=== PATIENT | male | born 1960 | race African-American/Black ===

== ENCOUNTER → 2019-09-27 08:47 | Outpatient (CLI) | payer OTHER, SELFPAY ==
--- NOTE | ~2019-09-27 | XR_ITS ---
XR chest 2V DATE: 09/27/2019 09:23 INDICATION: History of malignant neoplasm of kidney TECHNIQUE: 2 views COMPARISON: 03/08/2018 PA and lateral chest FINDINGS: There are calcified right hilar nodes, consistent with old pulmonary granulomatous disease. No hilar or mediastinal enlargement. Normal heart size. No pulmonary vascular congestion or pleural effusion. Bilateral hyperinflation. No pulmonary infiltrate or consolidation. Diffuse idiopathic skeletal hyperostosis of the thoracic spine. IMPRESSION: Bilateral hyperinflation; no active cardiopulmonary disease Reviewed, dictated and finalized at location A.
--- NOTE | ~2019-09-27 | CT_ITS ---
EXAMINATION: CT abdomen pelvis wo/w con EXAM DATE: 09/27/2019 09:22 INDICATION: Partial left-sided nephrectomy for renal cancer. Hypertension. TECHNIQUE: Spiral CT of the abdomen without contrast followed by both abdomen and pelvis with 100 cc intravenous Omnipaque 350. Axial, coronal and sagittal images were reviewed. The dose-length produc t (DLP) for this examination was 1126.20 mGy-cm. The exposure was tailored according to patient size (auto mA exposure control), and iterative reconstruction (ASIR) was used as additional dose reductio n technique. Comparison is made to prior examination from 03/08/2018. FINDINGS: The liver, spleen, adrenal glands and pancreas are unremarkable. Gallbladder is unremarkab le. No biliary obstruction. Portal and splenic veins are patent. Kidneys enhance symmetrically. T here is no hydronephrosis. Stable surgical changes from partial left nephrectomy, lower pole resected . There is mild prostatomegaly. The bladder is unremarkable. There is no retroperitoneal or pelvic lymphadenopathy. There is mild scattered arteriosclerotic disease. The appendix is normal. The stomach and small bowel are unremarkable. There is expected amount of c olonic stool. No free intraperitoneal gas. The heart is normal in size. There are no pericardial or pleural effusions. The lung bases are unremarkable. There are no osteoblastic or osteolytic les ions identified. IMPRESSION: 1. Stable partial left nephrectomy. No evidence of metastatic disease. 2. Mild prostatomegaly. Reviewed, dictated and finalized at location A.
[2019-09-27 09:10] LABS: Estimated Glomerular Filt Rate > 60
== END ==
PROVIDERS: Visit Provider Urology
DX: Z85.528 Personal history of other malignant neoplasm of kidney (principal); N40.0 Benign prostatic hyperplasia without lower urinary tract symptoms; R91.8 Other nonspecific abnormal finding of lung field
CPT/HCPCS: 36415; 71046; 74178; Q9967

== ENCOUNTER 2020-06-11 08:54 | Outpatient (CLI) | payer OTHER, SELFPAY ==
--- NOTE | ~2020-06-11 | US_ITS ---
US abdomen limited INDICATION: Left renal cancer. Increased liver function tests. PROCEDURE: Realtime right upper abdominal ultrasound. COMPARISON: No prior studies for comparison. FINDINGS: The pancreas is normal without focal mass or pancreatic ductal dilation. Liver echotexture is normal without focal mass or intrahepatic biliary dilatation. There is normal directional flow i n the portal vein. The gallbladder is normal without stones, gallbladder wall thickening or pericholecystic fluid. Comm on bile duct measures 4 mm. No sonographic Copeland's sign. IMPRESSION: 1: Normal limited abdominal ultrasound. Reviewed, dictated and finalized at location B.
== END 2020-06-11 08:55 | disposition home or self-care (01) ==
PROVIDERS: PCP Internal Medicine; Visit Provider Nurse Practitioner
DX: R74.8 Abnormal levels of other serum enzymes (principal)
CPT/HCPCS: 76705

== ENCOUNTER 2020-12-17 00:59 | Day surgery (SDC) | payer OTHER, SELFPAY ==
[2020-12-02 16:02] VITALS: BMI 25.7
[2020-12-17 08:20] VITALS: BP 149/79; PULSE 79; RESP 18; TEMP 36.6; O2SAT 100; BMI 26.4
--- NOTE | 2020-12-17 08:24 | WPDANESEPPF ---
Anes - Initial Pre Proc Eval Procedure: Operation Date: 12/17/20 09:15 Proposed Procedures p Esophagogastroduodenoscopy - Louis Garzon MD Date/Time: 12/17/20 08:24 Surgeon: Louis Garzon MD Pre Op Diagnosis: esophagitis, GERD Patient Data Age: 60 Gender: M Height: 1.88 m Weight: 93.2 kg Last Vital Signs Temp 36.6 C 12/17/20 08:20 Pulse 79 12/17/20 08:20 Resp 18 12/17/20 08:20 Pulse Ox 100 12/17/20 08:20 Allergies Allergy/AdvReac Type Severity Reaction Status Date / Time No Known Allergies Allergy Verified 12/17/20 08:18 Home Medications Medication Instructions Recorded Confirmed Type aspirin 81 mg tablet,delayed 81 mg PO DAILY 01/17/19 12/02/20 History release sildenafil 50 mg tablet 50 mg PO DAILY PRN #7 tablet 05/30/20 12/02/20 Rx linaclotide 145 mcg capsule 145 mcg PO DAILY #60 cap 11/27/20 12/02/20 Rx metformin 500 mg tablet 500 mg PO DAILY #90 tablet 11/27/20 12/02/20 Rx metoprolol succinate 50 mg 100 mg PO DAILY #90 tablet 11/27/20 12/02/20 Rx tablet,extended release 24 hr olmesartan 20 1 tablet PO DAILY #90 tablet 11/27/20 12/02/20 Rx mg-hydrochlorothiazide 12.5 mg tablet omega-3 fatty acids 1,000 mg 1,000 mg PO DAILY 11/27/20 12/02/20 History capsule pantoprazole 40 mg tablet,delayed 40 mg PO BID #90 tablet 11/27/20 12/02/20 Rx release pravastatin 80 mg tablet See Rx Instructions .ROUTE 11/27/20 12/02/20 Rx .COMPLEX #90 tablet trazodone 100 mg tablet 100 mg PO QHS PRN #30 tablet 11/27/20 12/02/20 Rx Patient hx anesthesia problems: none Family hx anesthesia problems: none Results Review: All pre-operative results and documents have been reviewed as part of the pre-operative evaluation. 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 Low hemoglobin and low hematocrit Overweight (11/25/16) Type 2 diabetes mellitus with hyperglycemia Weight loss Family History Family History Mother Hypertension Sibling Patient's sister is in good health Patient's brother is in good health Social History Social History Years smoked: 30 Smoking status: Current every day smoker Tobacco type: cigarettes Second hand tobacco smoke exposure: No Alcohol intake: current Drinks per week: 4 Substance use: never Living arrangements: with family Spiritual care concerns: No Anes - Eval Final PreProcedure Day of Procedure 12/17/20 08:24 Patient weight: overweight Heart: regular rate and rhythm Lungs: clear to auscultation and normal air movement Airway: Mallampati scale class II Neurological: alert and oriented Last oral intake: >/= 8 hours ASA classification: III Emergent: no Anesthetic plan: proceed Anesthesia type and monitoring: general GIVS Results Review: All pre-operative results and documents have been reviewed as part of the pre-operative evaluation. Informed Consent: The patient's anesthetic plan and its attendant risks and benefits were discussed with the patient/family/POA. Questions were solicited and answers provided to the satisfaction of the patient/family/POA.
[2020-12-17] MEDS: LACTATED RINGERS 1,000 ML 150 ML IV CONT (08:40)
[2020-12-17 08:42] LABS: Glucose Point of Care 205 mg/dl (65-105)
--- NOTE | 2020-12-17 09:05 | WPDGICN ---
Assessment and Plan Assessment and plan (1) Epigastric abdominal pain: Code(s): R10.13 - Epigastric pain Status: Acute Assessment and Plan: Patient with epigastric pain. Appears to be consistent with poorly controlled acid reflux. However patient is listed as taking pantoprazole 40mg p.o. b.i.d.. Plan is for EGD to assess this finding. Patient has a prior history of erosive esophagitis. (2) GERD (gastroesophageal reflux disease): Code(s): K21.9 - Gastro-esophageal reflux disease without esophagitis Status: Acute Assessment and Plan: Patient has a longstanding history of GE reflux disease for which she should continue anti-reflux measures on long-term PPI use. (3) History of colon polyps: Code(s): Z86.010 - Personal history of colonic polyps Status: Acute Assessment and Plan: Patient has a history of colon polyps most recently 2017. Follow-up colonoscopy suggested 2022. (4) Hx of renal cell cancer: Code(s): Z85.528 - Personal history of other malignant neoplasm of kidney Status: Acute (5) Type 2 diabetes mellitus with hyperglycemia: Code(s): E11.65 - Type 2 diabetes mellitus with hyperglycemia Status: Acute GI Consult Note Consult date/time: 12/17/20 09:05 HPI: Moses Mayen is a 60 year old male presents for EGD. Patient reports that he was hospitalized at [facility] in [place] several months ago. These records are not available. He was told that he had an infection and was sent home. Apparently had endoscopies at that time. Over the last 2-3 weeks he has noticed epigastric and substernal burning pain. This is in [facility] did only with taking Tums. He has had no improvement with liquid antacids. He has not tried Prilosec or similar medications. He denies any bleeding. He states diet does aggravate his discomfort. For these reasons he is referred for endoscopy. Primary care notes are reviewed in suggestive of acid reflux disease. Medications listed include pantoprazole which patient does not admit being aware of taking at this time. Old records reflect a history of renal cell carcinoma. Diabetes mellitus. Hypertension. Old records reviewed include he normal EGD in 2018 and a history of colon polyps by colonoscopy in 2018. 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 Low hemoglobin and low hematocrit Overweight (11/25/16) Type 2 diabetes mellitus with hyperglycemia Weight loss Family History Family History Mother Hypertension Sibling Patient's sister is in good health Patient's brother is in good health Social History Social History Years smoked: 30 Smoking status: Current every day smoker Tobacco type: cigarettes Second hand tobacco smoke exposure: No Alcohol intake: current Drinks per week: 4 Substance use: never Living arrangements: with family Spiritual care concerns: No Meds Home Medications and Allergies Home Medications Medication Instructions Recorded Confirmed Type aspirin 81 mg tablet,delayed 81 mg PO DAILY 01/17/19 12/02/20 History release sildenafil 50 mg tablet 50 mg PO DAILY PRN #7 tablet 05/30/20 12/02/20 Rx linaclotide 145 mcg capsule 145 mcg PO DAILY #60 cap 11/27/20 12/02/20 Rx metformin 500 mg tablet 500 mg PO DAILY #90 tablet 11/27/20 12/02/20 Rx metoprolol succinate 50 mg 100 mg PO DAILY #90 tablet
[2020-12-17] MEDS: BENZOCAINE (*SP) 60 ML SPRAY CAN (HURRICAINE) 1 SPRAY MUCOUS MEM (09:19)
[2020-12-17 09:30] VITALS: BP 107/69; PULSE 107; RESP 29; O2SAT 100
[2020-12-17 09:40] VITALS: BP 118/66; PULSE 98; RESP 25; O2SAT 100
[2020-12-17 09:50] VITALS: BP 156/88; PULSE 71; RESP 17; O2SAT 100
== END 2020-12-17 09:57 | disposition home or self-care (01) ==
PROVIDERS: PCP Internal Medicine; Visit Provider Internal Medicine Gastroenterology
PROC: 0DJ08ZZ Inspection of Upper Intestinal Tract, Via Natural or Artificial Opening Endoscopic (ICD-10-PCS; CPT 43235; principal; 2020-12-17 09:15)
DX: Z12.11 Encounter for screening for malignant neoplasm of colon (principal); Z85.038 Personal history of other malignant neoplasm of large intestine; K63.5 Polyp of colon; K64.8 Other hemorrhoids; K57.30 Diverticulosis of large intestine without perforation or abscess without bleeding; Z98.0 Intestinal bypass and anastomosis status
CPT/HCPCS: 45385; 82948; 87081; J7120

== ENCOUNTER 2022-05-07 07:35 | Outpatient (CLI) | payer OTHER, SELFPAY ==
--- NOTE | ~2022-05-07 | US_ITS ---
EXAMINATION: US carotid duplex BI DATE: 05/07/2022 09:29 INDICATION: Syncope and collapse. Recurrent fainting spells for 3 months TECHNIQUE: Grayscale, color Doppler, and pulsed Doppler images of the cervical carotid arteries were obtained. The degree of vessel stenosis is placed in one of the following categories: normal, <50%, 5 0-69%, >=70% but less than near-occlusion, near-occlusion, or total occlusion. Note that percent sten osis relative to normal distal artery lumen diameter is indirectly measured from velocity measurement s as described by Ruiz, et al. Radiology 2003; 229:[id number]. COMPARISON: None. FINDINGS: RIGHT: The right common carotid artery (CCA) peak systolic velocity (PSV) is 131 cm/s. The right internal ca rotid artery (ICA) PSV is 78 cm/s. The right ICA end-diastolic velocity (EDV) is 26 cm/s. The right I CA/CCA PSV ratio is 0.6. Grayscale and color Doppler images yield an estimate of <50% diameter reduct ion from plaque in the ICA. The external carotid artery (ECA) PSV is 73 cm/s. There is antegrade flow in the right vertebral artery. LEFT: The left CCA PSV is 103 cm/s. The left ICA PSV is 61 cm/s. The left ICA EDV is 54 cm/s. The left ICA/ CCA PSV ratio is 0.6. Grayscale and color Doppler images yield an estimate of <50% diameter reduction from plaque in the ICA. The ECA PSV is 82 cm/s. There is antegrade flow in the left vertebral artery . IMPRESSION: 1. <50% stenosis in the right internal carotid artery. 2. <50% stenosis in the left internal carotid artery. Reviewed, dictated and finalized at location A.
--- NOTE | ~2022-05-07 | CT_ITS ---
Non-contrast Head CT History: CVA, tumor Technique: Axial non-contrast imaging of the brain was performed. Dose reduction technique was used on this scan by utilizing automated exposure control and iterative reconstruction technique. The dose -length product (DLP) was 529.67 mGy-cm. Findings: There are small chronic bifrontal subdural hygromas versus bifrontal atrophy. No acute intr acranial hemorrhage, mass lesion, or acute infarct identified. Brain parenchyma appears normal. The ventricles and subarachnoid spaces are normal in size. The calvarium appears normal. The visualized paranasal sinuses and mastoid air cells are clear. Mild soft tissue swelling in the high right parie mari scalp noted. Impression: Small chronic bifrontal hygromas versus bifrontal atrophy. No acute intracranial hemorrhage, mass lesion, or acute infarct. Mild soft tissue swelling in the high right parietal scalp. Reviewed, dictated and finalized at [facility]. Impression: Small chronic bifrontal hygromas versus bifrontal atrophy. No acute intracranial hemorrhage, mass lesion, or acute infarct. Mild soft tissue swelling in the high right parietal scalp.
--- NOTE | 2022-05-07 07:49 | ECHO_ITS ---
Patient Info Name: Moses Mayen Age: 61 years : 1960 Gender: Male Ht: 74 in Wt: 186 lbs BSA: 2.10 m2 HR: 81 bpm BP: 153 / 87 mmHg Technical Quality: Good Exam Date: 05/07/2022 7:53 AM Exam Location: [facility] Pulmonary Patient Status: Outpatient Admit Date: 05/07/2022 Staff Ordering Physician: Aric Jones MD Groundhand: Katie Fenton RDCS Attending Provider: Aric Jones MD Referring Physician: Robert MERRITT; Exam Type: CA echo doppler color flow Study Info Indications R55 - Syncope and collapse Complete two-dimensional, color flow and Doppler transthoracic echocardiogram is performed. Summary 1. Complete two-dimensional, color flow and Doppler transthoracic echocardiogram is performed. 2. Left ventricular chamber dimension is mildly enlarged. 3. Left ventricular systolic function is normal, estimated at 55-60%. 4. The left ventricular diastolic function is normal. 5. E/e' 9 is minimally elevated. 6. Global longitudinal strain is mildly abnormal at -16.7%. 7. There is trace mitral valve regurgitation. 8. Mild pulmonary hypertension, estimated pulmonary arterial systolic pressure is 44 mmHg. Left Ventricle E/e' 9 is minimally elevated. Global longitudinal strain is mildly abnormal at -16.7%. Left ventricular chamber dimension is mildly enlarged. Left ventricular systolic function is normal, estimated at 55-60%. The left ventricular diastolic function is normal. Right Ventricle Right ventricular chamber dimension is normal. Right ventricular systolic function is normal. Left Atria Left atrial chamber dimension is normal. Right Atria Right atrial chamber dimension is normal. Aortic Valve The aortic valve is trileaflet. There is no aortic valve stenosis. There is no aortic valve regurgitation. Pulmonic Valve There is no pulmonic regurgitation. Mitral Valve There is no mitral valve stenosis. There is trace mitral valve regurgitation. Tricuspid Valve There is no tricuspid valve regurgitation. Mild pulmonary hypertension, estimated pulmonary arterial systolic pressure is 44 mmHg. Pericardium/Pleural There is no pericardial effusion. Inferior Vena Cava Normal inferior vena cava with >50% collapse upon inspiration consistent with normal right atrial pressure, 5 mmHg. Aorta The aortic root size at the sinus of Valsalva is normal. Left Ventricular Outflow Tract Name Value Normal LVOT 2D LVOT Diameter 2.0 cm LVOT Doppler LVOT Peak Gradient 5 mmHg LVOT Mean Gradient 3 mmHg LVOT VTI 24 cm LVOT VTI/AV VTI Ratio 1.0 LVOT Stroke Volume 79 ml LVOT CO 5.7 l/min LVOT CI 2.7 l/min/m2 Pulmonic Valve Name Value Normal RVOT Doppler
== END 2022-05-07 07:36 | disposition home or self-care (01) ==
PROVIDERS: PCP Internal Medicine; Visit Provider Internal Medicine
DX: I65.23 Occlusion and stenosis of bilateral carotid arteries (principal); I37.1 Nonrheumatic pulmonary valve insufficiency
CPT/HCPCS: 70450; 93306; 93880